=== PATIENT | female | born 1960 | race Two or more races ===

== ENCOUNTER 2025-03-19 09:15 | Emergency (ER) | payer OTHER ==
[~2025-03-19] VITALS: Ht 154.9 cm; Wt 102.1 kg
[2025-03-19] MEDS ORDERED: PRED50TA PO (09:28)
[2025-03-19 09:52] VITALS: BP 169/100; TEMP 97.9; O2SAT 99
== END 2025-03-19 09:53 | disposition home or self-care (01) ==
LOC: ER 09:21
DX: H83.09 Labyrinthitis, unspecified ear (principal); E11.9 Type 2 diabetes mellitus without complications; I10 Essential (primary) hypertension; Z79.52 Long term (current) use of systemic steroids